=== PATIENT | female | born 1990 | race Caucasian/White ===

== ENCOUNTER → 2023-11-23 | Outpatient (CLI) | payer SELFPAY ==
--- NOTE | 2023-11-23 | BRBX_PTH ---
PATIENT: NOEMI PLATT LOC: [facility] U#:[id number] AGE/SX: 32/F ROOM: RE11/23/[address]: Dr. Tao Steele MD : 1990 BED: DIS: 11/23/2023 SPEC #: [id number] RECD: 11/23/23 13:03 STATUS: MICA PATRICA #: [id number] IDANIA: 11/23/23 00:[address]: Tao Steele DEPT: SURGICAL PATHOLOGY RECD BY: João Beckman ENTERED: 11/23/23 13:03 SP TYPE: BREAST BX OTHR DR: Tammy Potter CNM Tissues: Right breast, NOS Procedures: Surgery Specimen Level IV HEADER OPERATION: Biopsy right breast mass PRE-OP DIAGNOSIS: Right breast mass TISSUE SUBMITTED: Right breast tissue MICROSCOPIC DIAGNOSIS Right breast, core biopsy: Fibroadenoma. Negative for atypia or malignancy. See comment. SJ/mr 11/24/23 COMMENT Correlation with clinical, radiologic findings and appropriate follow up are necessary. MICROSCOPIC DESCRIPTION Slides are reviewed. GROSS DESCRIPTION Received in fixative is one container labeled with the patient's name and designated right breast. The specimen consists of multiple elongated fragments of vargas-yellow fibroadipose tissue that in aggregate measure 2.5 x 0.5 x 0.1 cm. The entire specimen is submitted in one cassette. / SJ:mr 11/23/23 TC:1 CPT: 54307
== END | disposition home or self-care (01) ==
LOC: LABSPEC 11:35
PROVIDERS: PCP Midwife; Referring Provider Surgery; Visit Provider Surgery
DX: N63.10 Unspecified lump in the right breast, unspecified quadrant (principal)
CPT/HCPCS: 88305